=== PATIENT | male | born 1985 | race Caucasian/White ===

== ENCOUNTER 2021-03-17 20:53 | Inpatient (IN) | payer SELFPAY ==
[2021-03-17 21:29] LABS: #Lymphocytes 1.9 thou/uL (1.20-3.40); #Monocytes 0.5 thou/uL (0.11-0.59); %Basophils 0.4 % (0.0-1.0); %Eosinophils 0.4 % (0.0-10.0); %Lymphocytes 22.9 % (21.0-51.0); %Neutrophils 70.3 % (42.0-75.0); Hemoglobin 16.3 g/dL (14.0-18.0); Mean Corpuscular HGB CONC 35.1 g/dL (32.0-36.0); Mean Corpuscular Hemoglobin 32.3 pg (27.0-31.0); Mean Platelet Volume 9.8 fL (7.4-10.4); Platelet Count 188 thou/uL (130-400); RBC Distribution Width 11.9 % (11.5-14.5); Red Blood Cell (RBC) Count 5.04 mill/uL (4.70-6.10); White Blood Cell (WBC) Count 8.5 thou/uL (4.8-10.8)
[2021-03-17 21:50] LABS: ALT (SGPT) 38 U/L (8-55); AST (SGOT) 50 U/L (5-34); Albumin 4.1 g/dL (3.5-5.0); Alkaline Phosphatase 105 U/L (40-110); Anion Gap 21 mmol/L (10-20); BUN (Urea Nitrogen) 16 mg/dL (8.9-20.6); Bilirubin, Total 0.4 mg/dL (0.2-1.2); Calc. Creatinine Clearance 0 mL/min (70-130); Calcium 9.3 mg/dL (7.8-10.44); Carbon Dioxide 20 mmol/L (22-29); Chloride 94 mmol/L (98-107); Globulin 3.6 g/dL (2.4-3.5); Lipase 45 U/L (8-78); Potassium 4.8 mmol/L (3.5-5.1); Protein, Total 7.7 g/dL (6.0-8.3); Sodium 130 mmol/L (136-145)
[2021-03-17 21:54] LABS: Glucose 729 mg/dL (70-105)
[2021-03-17 22:10] LABS: Bacteria/HPF None Seen HPF (None Seen); Bilirubin Negative (Negative); Blood, Urine Trace (Negative); Clarity Clear (Clear); Glucose, Urine (Dipstick) Greater than 1000 mg/dL (Negative); Ketone, Urine 80 mg/dL (Negative); Leukocyte Negative Leu/uL (Negative); Nitrite Negative (Negative); Protein, Urine (Dipstick) Negative (Neg-Trace); RBC/HPF 0-3 HPF (0-3); Squamous Epithelial None Seen HPF (0-3); Urobilinogen Normal mg/dL (Less than 2); WBC/HPF 0-3 HPF (0-3); pH, Urine 5.5 (5.0-9.0)
[2021-03-17 22:27] LABS: Actual Bicarbonate (HCO3v) 21 mEq/L (22-28); Analyzer IN Cardio ER; Base Excess -5.2 mEq/L (-2.0 to +3.0); Calcium, Ionized (venous) 1.13 mmol/L (1.16-1.32); Chloride (VBG) 97 mmol/L (98-106); Hemoglobin (Hb) 15.9 g/dL (13.2-17.3); Potassium (VBG) 4.63 mmol/L (3.70-5.30); Sodium 132.3 mmol/L (133-146); pH (venous) 7.31 (7.32-7.43)
[2021-03-17] MEDS ORDERED: Insulin Regular 300 UNITS/3 ML VIAL ONE (22:38)
[2021-03-17] MEDS ORDERED: NS 0.9% w/ 20 MEQ KCL 1,000 ML IV SCH (22:45)
[2021-03-17] MEDS ORDERED: INSULIN REGULAR IN 0.9 % NACL 100 UNIT/100 ML BAG ONE (23:17)
[2021-03-17] MEDS ORDERED: Dextrose 5 %-0.45 % NaCl 1,000 ML IV PRN (23:43)
[2021-03-17] MEDS ORDERED: Electrolyte Replacement Protocol 1 EACH IVPB PRN (23:43)
[2021-03-17] MEDS ORDERED: D5 1/2 NS w/20 mEq KCL 1,000 ML IV PRN (23:43)
[2021-03-17] MEDS ORDERED: NS 0.9% w/ 20 MEQ KCL 1,000 ML IV PRN ×2 (23:43)
[2021-03-17] MEDS ORDERED: Acetaminophen 325 MG TAB PO PRN (23:43)
[2021-03-17] MEDS ORDERED: Sodium Chloride 0.9% 1,000 ML IV PRN ×4 (23:43)
[2021-03-17] MEDS ORDERED: Ondansetron PF 4 MG/2 ML Vial IVP PRN (23:43)
[2021-03-17] MEDS ORDERED: HUMULIN R 100 UNITS in Sodium Chloride 0.9% 100 ML IVPB SCH (23:45)
[2021-03-17] MEDS ORDERED: hydrALAZINE 20 MG/ML VIAL SLOW IVP PRN (23:47)
[2021-03-18 00:34] LABS: Anion Gap 16 mmol/L (10-20); BUN (Urea Nitrogen) 15 mg/dL (8.9-20.6); Calc. Creatinine Clearance 0 mL/min (70-130); Calcium 8.7 mg/dL (7.8-10.44); Carbon Dioxide 21 mmol/L (22-29); Chloride 105 mmol/L (98-107); Glucose 363 mg/dL (70-105); Sodium 138 mmol/L (136-145)
[2021-03-18 00:40] VITALS: BMI 20.6
[2021-03-18 01:12] LABS: SARS-CoV-2 NAA Rapid Test Not Detected (NotDetected)
[2021-03-18] MEDS ORDERED: D5 1/2 NS w/20 mEq KCL 1,000 ML ONE ×2 (01:25→06:30)
[2021-03-18 04:31] LABS: #Eosinphils 0.1 thou/uL (0.0-0.7); #Lymphocytes 2.7 thou/uL (1.20-3.40); #Monocytes 0.6 thou/uL (0.11-0.59); #Neutrophils 3.9 thou/uL (1.40-6.50); %Basophils 0.4 % (0.0-1.0); %Eosinophils 1.1 % (0.0-10.0); %Lymphocytes 36.8 % (21.0-51.0); %Monocytes 8.1 % (0.0-10.0); %Neutrophils 53.6 % (42.0-75.0); Hemoglobin 13.6 g/dL (14.0-18.0); Mean Corpuscular Hemoglobin 31.6 pg (27.0-31.0); Mean Corpuscular Volume 90.2 fL (78.0-98.0); Mean Platelet Volume 9.1 fL (7.4-10.4); Platelet Count 196 thou/uL (130-400); RBC Distribution Width 11.8 % (11.5-14.5); Red Blood Cell (RBC) Count 4.31 mill/uL (4.70-6.10); White Blood Cell (WBC) Count 7.3 thou/uL (4.8-10.8)
[2021-03-18 04:43] LABS: Hemoglobin A1c 10.3 % (4.0-6.0)
[2021-03-18 04:52] LABS: Chloride 112 mmol/L (98-107); Potassium 3.9 mmol/L (3.5-5.1); Sodium 141 mmol/L (136-145)
[2021-03-18 04:55] LABS: Anion Gap 12 mmol/L (10-20); Carbon Dioxide 21 mmol/L (22-29); Glucose 153 mg/dL (70-105)
[2021-03-18 04:57] LABS: Calc. Creatinine Clearance 111 mL/min (70-130)
[2021-03-18 04:58] LABS: BUN (Urea Nitrogen) 12 mg/dL (8.9-20.6)
[2021-03-18] MEDS ORDERED: HumaLOG 300 UNITS/3 ML VIAL ONE (08:27)
[2021-03-18] MEDS ORDERED: Famotidine 20 MG TAB ONE (08:45)
[2021-03-18 08:50] LABS: Anion Gap 12 mmol/L (10-20); BUN (Urea Nitrogen) 10 mg/dL (8.9-20.6); Calc. Creatinine Clearance 113 mL/min (70-130); Carbon Dioxide 22 mmol/L (22-29); Chloride 110 mmol/L (98-107); Glucose 185 mg/dL (70-105); Potassium 3.9 mmol/L (3.5-5.1); Sodium 140 mmol/L (136-145)
[2021-03-18] MEDS: NPH, Human Insulin Isophane 300 UNIT/3 ML VIAL SC SCH (09:01)
[2021-03-18] MEDS: Famotidine 20 MG TAB PO SCH ×2 (09:04→20:52)
[2021-03-18] MEDS: Heparin 5,000 UNITS/ML VIAL SC SCH ×3 (09:04→20:52)
[2021-03-18] MEDS ORDERED: Dextrose 5% in Water 1,000 ML IV PRN (13:36)
[2021-03-18] MEDS ORDERED: Dextrose 50% Abboject 50 ML SYRINGE SLOW IVP PRN (13:36)
[2021-03-18] MEDS: HumaLOG 300 UNITS/3 ML VIAL SC PRN ×2 (14:02→16:33)
[2021-03-18] MEDS ORDERED: NPH, Human Insulin Isophane 300 UNIT/3 ML VIAL SC SCH (21:00)
[2021-03-18] MEDS ORDERED: Gabapentin 300 MG CAP PO SCH (22:00)
[2021-03-19] MEDS: HumaLOG 300 UNITS/3 ML VIAL SC PRN ×4 (05:32→20:42)
[2021-03-19 06:50] LABS: #Basophils 0.1 thou/uL (0.0-0.2); #Eosinphils 0.1 thou/uL (0.0-0.7); #Lymphocytes 2.2 thou/uL (1.20-3.40); #Monocytes 0.4 thou/uL (0.11-0.59); #Neutrophils 2.5 thou/uL (1.40-6.50); %Basophils 1.1 % (0.0-1.0); %Eosinophils 2.1 % (0.0-10.0); %Lymphocytes 41.8 % (21.0-51.0); %Monocytes 7.9 % (0.0-10.0); %Neutrophils 47.2 % (42.0-75.0); Hemoglobin 14.4 g/dL (14.0-18.0); Mean Corpuscular HGB CONC 32.3 g/dL (32.0-36.0); Mean Corpuscular Hemoglobin 29.6 pg (27.0-31.0); Mean Corpuscular Volume 91.7 fL (78.0-98.0); Mean Platelet Volume 9.5 fL (7.4-10.4); Platelet Count 192 thou/uL (130-400); RBC Distribution Width 11.9 % (11.5-14.5); Red Blood Cell (RBC) Count 4.85 mill/uL (4.70-6.10); White Blood Cell (WBC) Count 5.2 thou/uL (4.8-10.8)
[2021-03-19 07:11] LABS: Anion Gap 11 mmol/L (10-20); BUN (Urea Nitrogen) 7 mg/dL (8.9-20.6); Calc. Creatinine Clearance 93 mL/min (70-130); Calcium 8.7 mg/dL (7.8-10.44); Carbon Dioxide 26 mmol/L (22-29); Chloride 103 mmol/L (98-107); Glucose 383 mg/dL (70-105); Potassium 4.2 mmol/L (3.5-5.1); Sodium 136 mmol/L (136-145)
[2021-03-19] MEDS: Famotidine 20 MG TAB PO SCH ×2 (08:42→20:41)
[2021-03-19] MEDS: Gabapentin 300 MG CAP PO SCH ×2 (08:42→20:41)
[2021-03-19] MEDS: Heparin 5,000 UNITS/ML VIAL SC SCH ×3 (08:44→20:41)
[2021-03-19] MEDS: NPH, Human Insulin Isophane 300 UNIT/3 ML VIAL SC SCH (08:45)
[2021-03-19] MEDS ORDERED: Amlodipine 5 MG TAB PO SCH (09:00)
[2021-03-19] MEDS: Insulin Regular 300 UNITS/3 ML VIAL SC SCH (17:09)
[2021-03-19] MEDS ORDERED: NPH, Human Insulin Isophane 300 UNIT/3 ML VIAL SC SCH (21:00)
[2021-03-20] MEDS: HumaLOG 300 UNITS/3 ML VIAL SC PRN ×2 (05:25→20:20)
[2021-03-20 07:25] LABS: #Eosinphils 0.1 thou/uL (0.0-0.7); #Lymphocytes 2.4 thou/uL (1.20-3.40); #Monocytes 0.4 thou/uL (0.11-0.59); #Neutrophils 2.5 thou/uL (1.40-6.50); %Basophils 0.6 % (0.0-1.0); %Eosinophils 1.4 % (0.0-10.0); %Lymphocytes 43.8 % (21.0-51.0); %Monocytes 7.8 % (0.0-10.0); %Neutrophils 46.4 % (42.0-75.0); Hemoglobin 14.6 g/dL (14.0-18.0); Mean Corpuscular HGB CONC 33.3 g/dL (32.0-36.0); Mean Corpuscular Hemoglobin 30.6 pg (27.0-31.0); Mean Corpuscular Volume 91.8 fL (78.0-98.0); Platelet Count 190 thou/uL (130-400); Red Blood Cell (RBC) Count 4.79 mill/uL (4.70-6.10); White Blood Cell (WBC) Count 5.5 thou/uL (4.8-10.8)
[2021-03-20 07:32] LABS: Anion Gap 12 mmol/L (10-20); BUN (Urea Nitrogen) 10 mg/dL (8.9-20.6); Calc. Creatinine Clearance 111 mL/min (70-130); Calcium 9.1 mg/dL (7.8-10.44); Carbon Dioxide 26 mmol/L (22-29); Chloride 106 mmol/L (98-107); Glucose 220 mg/dL (70-105); Potassium 3.6 mmol/L (3.5-5.1); Sodium 140 mmol/L (136-145)
[2021-03-20] MEDS: Lisinopril 2.5 MG TAB PO SCH (07:48)
[2021-03-20] MEDS: Famotidine 20 MG TAB PO SCH ×2 (07:48→20:17)
[2021-03-20] MEDS: Gabapentin 300 MG CAP PO SCH ×2 (07:49→20:17)
[2021-03-20] MEDS: Heparin 5,000 UNITS/ML VIAL SC SCH ×3 (07:50→20:17)
[2021-03-20] MEDS: NPH, Human Insulin Isophane 300 UNIT/3 ML VIAL SC SCH ×2 (07:51→20:18)
[2021-03-20] MEDS: Insulin Regular 300 UNITS/3 ML VIAL SC SCH ×3 (07:52→18:29)
[2021-03-21] MEDS: HumaLOG 300 UNITS/3 ML VIAL SC PRN ×3 (05:05→22:08)
[2021-03-21] MEDS: Lisinopril 2.5 MG TAB PO SCH (08:12)
[2021-03-21] MEDS: Famotidine 20 MG TAB PO SCH ×2 (08:12→22:06)
[2021-03-21] MEDS: Gabapentin 300 MG CAP PO SCH ×2 (08:12→22:06)
[2021-03-21] MEDS: Heparin 5,000 UNITS/ML VIAL SC SCH ×3 (08:12→22:07)
[2021-03-21] MEDS: NPH, Human Insulin Isophane 300 UNIT/3 ML VIAL SC SCH ×2 (08:13→22:07)
[2021-03-21] MEDS: Insulin Regular 300 UNITS/3 ML VIAL SC SCH ×2 (08:15→15:35)
[2021-03-22] MEDS: Gabapentin 300 MG CAP PO SCH ×2 (08:18→22:05)
[2021-03-22] MEDS: Heparin 5,000 UNITS/ML VIAL SC SCH ×3 (08:18→22:06)
[2021-03-22] MEDS: Famotidine 20 MG TAB PO SCH ×2 (08:18→22:05)
[2021-03-22] MEDS: Lisinopril 2.5 MG TAB PO SCH (08:19)
[2021-03-22] MEDS: NPH, Human Insulin Isophane 300 UNIT/3 ML VIAL SC SCH ×2 (08:19→22:06)
[2021-03-22] MEDS: Insulin Regular 300 UNITS/3 ML VIAL SC SCH ×2 (08:19→16:01)
[2021-03-22] MEDS: HumaLOG 300 UNITS/3 ML VIAL SC PRN (22:09)
[2021-03-23] MEDS: HumaLOG 300 UNITS/3 ML VIAL SC PRN ×4 (05:23→20:41)
[2021-03-23] MEDS: Famotidine 20 MG TAB PO SCH ×2 (08:24→20:40)
[2021-03-23] MEDS: Heparin 5,000 UNITS/ML VIAL SC SCH ×3 (08:24→20:44)
[2021-03-23] MEDS: Gabapentin 300 MG CAP PO SCH ×2 (08:24→20:40)
[2021-03-23] MEDS: Insulin Regular 300 UNITS/3 ML VIAL SC SCH ×2 (08:25→17:16)
[2021-03-23] MEDS: Lisinopril 2.5 MG TAB PO SCH (08:26)
[2021-03-23] MEDS: NPH, Human Insulin Isophane 300 UNIT/3 ML VIAL SC SCH ×2 (08:28→20:41)
[2021-03-23 19:23] VITALS: BP 90/63; TEMP 98
[2021-03-24] MEDS: HumaLOG 300 UNITS/3 ML VIAL SC PRN (06:05)
[2021-03-24] MEDS: Insulin Regular 300 UNITS/3 ML VIAL SC SCH (06:06)
== END 2021-03-24 06:30 | disposition home or self-care (01) | DRG 637 ==
LOC: ERS 20:53 → ERHOLD 22:48 → T4-A 03-18 11:48
PROVIDERS: ADMIT Internal Medicine; ATTEND Internal Medicine
DX: E10.10 Type 1 diabetes mellitus with ketoacidosis without coma (principal); G92 Toxic encephalopathy; N17.9 Acute kidney failure, unspecified; E87.1 Hypo-osmolality and hyponatremia; Z20.822 Contact with and (suspected) exposure to COVID-19; F31.9 Bipolar disorder, unspecified; F17.210 Nicotine dependence, cigarettes, uncomplicated; I10 Essential (primary) hypertension; Z59.0 Homelessness; Z88.5 Allergy status to narcotic agent; Z79.4 Long term (current) use of insulin; Z79.899 Other long term (current) drug therapy; Z83.3 Family history of diabetes mellitus
CPT/HCPCS: 36415; 36416; 80048; 80053; 81003; 81015; 82010; 82805; 83036; 83690; 84484; 85025; 93005; 96365; 96374; 96375; J1644; J1815; J3480; U0002